=== PATIENT | male | born 1925 | race African-American/Black ===

== ENCOUNTER 2016-09-05 22:14 | Observation (INO) | payer MEDICARE ==
--- NOTE | ~2016-09-05 | HP ---
History And Physical [address] [place]. [address] NAME: SHADIA ROBLES : [birth year] STATUS : ADM IN [facility]#: [id number] AGE: 89 ADM/REG DATE : 09/06/16 MR#: [id number] REPORT SERV DATE: 09/06/16 DICTATED BY: NELL BRADFORD DATE: 09/06/16 REPORT STATUS : Draft TRANSCRIBED BY: PHILOMENA DATE: 09/06/16 DATE OF ADMISSION: 09/05/2016 CHIEF COMPLAINT: Nausea, vomiting, and low-grade fever. HISTORY OF PRESENT ILLNESS: Mr. Robles is an 89-year-old man on comfort care. He was transferred to the ER via 911 yesterday evening because of persistent vomiting and lethargy. Earlier in the day, he had been evaluated in the [facility] for his persisted vomiting. A rectal done at that time, did not reveal any formed or hard stools. He had a low-grade temp of 99. Our staff had extensive conversation with the family. A comfort-care kit consisting of morphine, Ativan, Zofran, and suppositories was sent to the home to facilitate comfort care measures. Unfortunately, not long after arriving home, the patient started vomiting persistently and the family called 911. Evaluation in the ER revealed that he had what appeared to be a fecal impaction and pneumonia. The patient was started on laxatives and given a dose of Zosyn. Apparently, a rapid response was called at some point during the night because of hypotension and lethargy. He was given more fluids with the increase in his blood pressure. He has also had two large bowel movements, and a KUB this morning reveals that he has less retained stool. PAST MEDICAL HISTORY: Significant Alzheimer disease with progressive weight loss and anorexia; type 2 diabetes, on insulin; hypertension; anemia with alpha-thalassemia trait; prostate cancer; and hyperlipidemia. ALLERGIES: HE HAS NO KNOWN DRUG ALLERGIES. MEDICATIONS: Included: Losartan 50 mg daily, carvedilol 25 mg twice daily, aspirin 81 daily, Remeron 15 at night, vitamin B12 100 mcg daily, Tylenol 650 at bedtime, and Lupron 30 mg q.4 months. FAMILY HISTORY: Significant for hypertension and diabetes. SOCIAL HISTORY: He is . He lives at home with his . He has children who are involved in his care. He is a former smoker. REVIEW OF SYSTEMS: He denies pain including abdominal pain or chest pain. He does not appear short of breath, and he has not vomited again since arriving on the floor. PHYSICAL EXAMINATION: VITAL SIGNS: Temp is 97.7, blood pressure 129/68, pulse 107, respiratory rate 20, O2 saturation 100% on 12 L. GENERAL: He is a frail, chronically ill-appearing man, in no apparent distress. HEENT: Normocephalic, atraumatic. Conjunctivae not injected. He does have conjunctival pallor. No scleral icterus. He is edentulous. CARDIAC: He is tachycardic. LUNGS: He does have crackles at the right base. History And Physical [address] [address] NAME: SHADIA ROBLES : [birth year] STATUS : ADM IN [facility]#: [id number] AGE: 89 ADM/REG DATE : 09/06/16 MR#: [id number] REPORT SERV DATE: 09/06/16 DICTATED BY: NELL BRADFORD DATE: 09/06/16 REPORT STATUS : Draft TRANSCRIBED BY: PHILOMENA DATE: 09/06/16 ABDOMEN: Hypoactive, but his belly is soft, nondistended, nontender. : Normal male genitalia. No Rosenbaum in place. EXTREMITIES: No edema. SKIN: No pressure ulcers. NEURO: He is alert, answering simple questions, following simple commands. He has diffuse weakness. He requires assistance to turn in bed. LABORATORY EVALUATION: White count was 2.4, hemoglobin 12.4, hematocrit 38.5, platelets 176. PT/PTT within normal limits. Chemistries: His sodium was 137, potassium 5.1, chloride 101, bicarb 28, BUN 23, creatinine 1.34, glucose 126, albumin 3.2. Rest of liver tests within normal limits. Troponin was less than 0.02. CT scan of the abdomen and pelvis showed gallstones, large amount of retained stool. Suspect fecal impaction. Significant middle and right lower lobe pneumonia. Chest x-ray showed bibasilar asymmetric infiltrates at the right lung base, worst on the left. KUB this morning shows nonobstructive bowel pattern. Significant decrease in amount of stool in the colon compared to films done the day before. EKG shows sinus tach, 112 beats per minute. No acute ST-T changes. IMPRESSION AND PLAN: 1. Pneumonia with hypoxia, likely aspiration. We will give him Rocephin and Augmentin. The patient is presently already reduced to 6 L of oxygen via nasal cannula and the nurses will continue to reduce his oxygen to keep his O2 saturation greater than 92%. 2. Fecal impaction. It is resolving. We will go ahead and give him another bisacodyl, more MiraLAX, and start some senna daily. 3. Protein-calorie malnutrition with poor appetite, decreased albumin, and weight loss. 4. Severe Alzheimer's dementia. He is nonambulatory. He has just been declining, both physically and cognitively. 5. Hypertension, but history of recent hypotension. We will not give him losartan. We will continue his Coreg with orders to hold if his systolic blood pressure is less than 110. 6. Code status is still DNR, comfort care. We will discontinue his heart monitor. We will continue his O2 monitoring for now. Did speak to his daughter, Kaci, who is the primary decision maker and we discussed their ability to take care of him at home. There was some hesitancy. She was going to discuss the issues with her brother because at this point, I do not know whether it would be better to discharge him home or to access for a skilled nursing bed for end of life care. I will complete the RN pronouncement form. We also will not do CPAP or BiPAP. JERALD/PHILOMENA Nell Bradford M.D. / [id number] CC: History And Physical [address] [address] NAME: SHADIA ROBLES : [birth year] STATUS : ADM IN [facility]#: [id number] AGE: 89 ADM/REG DATE : 09/06/16 MR#: [id number] REPORT SERV DATE: 09/06/16 DICTATED BY: NELL BRADFORD DATE: 09/06/16 REPORT STATUS : Draft TRANSCRIBED BY: MODL DATE: 09/06/16 Quentin Braxton M.D.
[2016-09-05 19:32] LABS: BASOPHILS 0 %; EOSINOPHILS 0 %; ER CBC TAT 0 Hrs 18 Mins; HEMATOCRIT 38.5 % (40.0-51.0); HEMOGLOBIN 12.4 g/dL (13.6-17.8); LYMPHOCYTES 26.6 %; LYMPHOCYTES ABSOLUTE 0.63 10/3/uL (0.67-4.30); MEAN CORPUS HGB CONC 32.2 g/dL (32.0-36.0); MEAN CORPUSCULAR HEMOGLOB 23.6 pg (26.0-34.0); MEAN CORPUSCULAR VOLUME 73.3 fL (80-100); MONOCYTES 6.8 %; MONOCYTES ABSOLUTE 0.16 10/3/uL (0.21-1.20); NEUTROPHILS 66.6 %; NEUTROPHILS ABSOLUTE 1.58 10/3/uL (2.02-8.40); PLATELET COUNT 176 10/3/uL (150-400); RBC DISTRIBUTION WIDTH 15.5 % (12.0-16.0); RED CELL COUNT 5.25 10/6/uL (4.7-6.1); WHITE BLOOD CELLS 2.4 10/3/uL (4.5-10.5)
[2016-09-05 19:33] LABS: MANUAL DIFF NO %
[2016-09-05 19:36] LABS: A/G RATIO 0.6 (0.7-1.9); ALBUMIN 3.2 G/DL (3.5-5.0); ALKALINE PHOSPHATASE 63 U/L (45-117); BUN (BLOOD UREA NITROGEN) 23 MG/DL (6-23); CALCIUM, SERUM 9.9 MG/DL (8.5-10.4); CHLORIDE, SERUM 101 MMOL/L (96-112); CO2 (CARBON DIOXIDE) 28 MMOL/L (24-34); CREATININE 1.34 MG/DL (0.70-1.30); GFR AFRICAN AMERICAN 54 ML/MIN (>=60); GFR NON AFRICAN AMERICAN 47 ML/MIN (>=60); GLOBULIN 5.3 G/DL (2.5-4.1); GLUCOSE, SERUM 126 MG/DL (60-99); POTASSIUM, SERUM 5.1 MMOL/L (3.5-5.3); SGPT(ALT) 29 U/L (5-65); SODIUM, SERUM 137 MMOL/L (135-148); TOTAL BILIRUBIN 0.9 MG/DL (0-1.2); TOTAL PROTEIN 8.5 G/DL (6.0-8.5); TROPONIN I <0.02 NG/ML (<0.05)
[2016-09-05 19:40] LABS: SGOT(AST) 24 U/L (5-40)
[2016-09-05 19:42] LABS: INTERNATIONAL NORMAL RATI 1.1 UNITS (-); PARTIAL THROMBO TIME 25.2 SEC (22.5-37.2)
[2016-09-05 20:05] LABS: PLATELET ESTIMATE ADQ (ADEQUATE); RBC MORPHOLOGY NORM (NORMAL)
[~2016-09-05 22:14] MED LIST: ASAB PO; B12100T PO; COREG25 PO; COZ50 PO; GLUCOPHAGE1000 MG PO; LIPITOR20 PO; REM15 PO
== END 2016-09-06 20:42 ==
LOC: ER 22:14 → 6NO 23:35
PROVIDERS: Emergency Medicine
DX: J18.9 Pneumonia, unspecified organism (principal); R09.02 Hypoxemia; K56.41 Fecal impaction; G30.9 Alzheimer's disease, unspecified; F02.80 Dementia in other diseases classified elsewhere, unspecified severity, without behavioral disturbance, psychotic disturbance, mood disturbance, and anxiety; I10 Essential (primary) hypertension; Z79.82 Long term (current) use of aspirin; Z79.899 Other long term (current) drug therapy
CPT/HCPCS: 71010; 74000; 74176; 80053; 81001; 82962; 84484; 85025; 85610; 85730; 93005; 94640; 96365; 96375; 99285; A9270-GY; G0378; J2543